=== PATIENT | female | born 2000 | race Caucasian/White ===

== ENCOUNTER → 2022-01-21 10:46 | Outpatient (CLI) | payer OTHER, MEDICAID, SELFPAY ==
--- NOTE | 2022-01-21 10:51 | DI.RAD.S_ITS ---
PROCEDURE: XR HUMERUS LT 2V INDICATIONS: Unable to palpate Nexplanon in left arm TECHNIQUE: 2 views of the humerus were acquired. COMPARISON: None. FINDINGS: Bones: No fractures or dislocations. No suspicious bony lesions. Soft tissues: No suspicious soft tissue calcifications. 4 cm linear implantable control noted in the subcutaneous tissues in the mid arm IMPRESSION: Mid arm subcutaneous control implant noted Approved by: Colton Long M.D. on 01/21/2022 at 15:56
== END ==
PROVIDERS: PCP Physician Assistant; Referring Provider Specialist; Visit Provider Specialist
DX: Z30.46 Encounter for surveillance of implantable subdermal contraceptive (principal)
CPT/HCPCS: 73060

== ENCOUNTER → 2022-02-21 13:51 | Outpatient (CLI) | payer OTHER, MEDICAID, SELFPAY ==
[2022-02-21 14:26] LABS: COVID19 -Nasal RAPID Negative (Negative)
== END ==
PROVIDERS: PCP Physician Assistant; Visit Provider Specialist
DX: Z20.822 Contact with and (suspected) exposure to COVID-19 (principal); Z01.812 Encounter for preprocedural laboratory examination
CPT/HCPCS: 87635; C9803

== ENCOUNTER 2022-02-22 11:51 | Day surgery (SDC) | payer OTHER, MEDICAID, SELFPAY ==
[2022-02-19 07:29] VITALS: BMI 29.1
[2022-02-22] VITALS (9 sets, daily range): BP systolic 96–130; BP diastolic 37–74; PULSE 85–99; RESP 13–18; TEMP 35.9–36.8; O2SAT 93–97; BMI 29.1
[2022-02-22] MEDS: LACTATED RINGERS 1,000 ML 100 ML IV (12:30)
[2022-02-22] MEDS: ACETAMINOPHEN 325 MG TABLET 975 MG PO (12:33)
--- NOTE | 2022-02-22 12:59 | PM.PREOP ---
Pre-operative Note COVID-19 COVID-19 status: Negative Result date/Date tested (Pos, Neg/Pending): 02/21/22 Criteria for continued procedure: Delay expected to result in less-positive ultimate med/surg outcome Interval Note History & Physical reviewed/Exam performed by Physician: Yes Changes to H&P: No
--- NOTE | 2022-02-22 13:00 | P.HPOB_ITS ---
History of Present Illness History of Present Illness Reason for admission: other (Nexplanon not retrievable in the office) Narrative: Rosie Dumont is a 21 year old female admitted for removal of Nexplanon with C arm location and replacement of Nexplanon [facility] [place] Medical History (Updated 02/22/22 @ 13:02 by Jeanne Aiken MD) Chiari malformation History of developmental delay History of impulsive behavior PTSD (post-traumatic stress disorder) Tremor of both hands Social History household members: family Smoking Status: Never smoker alcohol intake: never Meds Home Medications and Allergies Home Medications Medication Instructions Recorded Confirmed Type etonogestrel 68 mg subdermal 1 implant SUBDERMAL CONT each 12/02/18 02/19/22 History implant (Nexplanon) Allergies Allergy/AdvReac Type Severity Reaction Status Date / Time aspirin [ASPIRIN] Allergy Unknown Avoided Verified 02/22/22 11:28 due to strong family history of allergy Review of Systems Review of Systems Narrative: Patient denies any fevers. No pain. She is requesting replacement of Nexplanon that has . Exam Vital Signs (past 8 hours): - 02/22/22 12:10 Temperature 98.2 F Pulse Rate 89 Respiratory Rate 16 Blood Pressure 130/74 Pulse Oximetry 97 Oxygen Delivery Method Room Air Narrative Exam Narrative: HEENT exam within normal limits. Lungs are clear to auscultation percussion. Heart is regular rate and rhythm no S3-S4 murmurs. Abdomen is soft nontender. Extremities without edema and nontender. Nexplanon is in her left arm. Consent form reviewed with the patient and signed. Risk of reaction to medication or anesthesia, infection, bleeding, pain. Consent form signed and questions answered. Assessment & Plan Assessment and plan (1) Nexplanon in place: Problem details: Malpositioned Status: Acute (2) Encounter for removal and reinsertion of Nexplanon: Status: Acute (3) Preoperative exam for gynecologic surgery: Status: Acute Assessment & Plan narrative: Removal and replacement of Nexplanon in the patient's left arm. Time Spent With Patient Critical Care time: I spent a total of [] minutes of critical care time on this patient's care today; this time is exclusive of procedural time.
[2022-02-22] MEDS: CEFAZOLIN 2 GM/20 ML SYRINGE IV (14:10)
--- NOTE | 2022-02-22 14:24 | SUR.OPER ---
Supine on padded OR bed, head on pillow, right arm secured on padded arm board at <90 degrees abduction, left arm in surgical field on hand table. Legs uncrossed, pillow under knees, safety belt at thigh, gel pad under bilateral heels.
[2022-02-22] MEDS: BUPIVACAINE 0.25% (PF) 30 ML, EPINEPHrine 0.15 MG INJ (14:34)
--- NOTE | 2022-02-22 14:49 | PM.OP.1 ---
Operative Date/Time/Diagnoses Date of procedure: 02/22/22 Time of procedure: 14:49 Pre-op diagnosis: Malpositioned Nexplanon in left arm and wish for new Nexplanon placement Post-op diagnosis: same Procedure & Clinicians Procedure: Removal of left arm Nexplanon IUD with assist by C-arm x-ray. Placement Nexplanon in left arm. Same procedure as scheduled: Yes Indications: Patient with Nexplanon wishing new Nexplanon but was not able to be removed in the office. Surgeon: Jeanne Aiken Click Yes if Unassisted: Yes Anesthesia Type: General Operative Notes Findings: Nexplanon in left arm Closure Type: primary Specimen(s): none sent Estimated Blood Loss (mL): 5 Blood products transfused: none Procedure in detail: Patient was brought to the operating room where she underwent general anesthesia. The left arm was prepped and draped sterilely. 2 g of Ancef were in prior to beginning the case. A check system was reviewed with the staff in the room prior to beginning of the case. The C-arm x-ray was used to locate the Nexplanon. An incision was made through prior incision and the Nexplanon capsule was grasped and the Nexplanon removed. New Nexplanon was placed lower in the arm through the 1st incision and aiming toward the elbow rather than towards the axilla. The skin of the incision was closed with 4-0 Monocryl. 0.5% Marcaine with epinephrine was injected for postop pain control. Counts of instruments and sponges were correct. Patient went to recovery room in stable condition. Complications: none Post-operative Condition: stable Disposition: same day surgery Plan for aftercare: Home when awake and stable.
--- NOTE | 2022-02-22 14:57 | SUR.OPER ---
New nexplanon implant inserted by Dr. Aiken to left upper, inner arm upon removal of prior nexplanon. Lot # [id number], expiration: 03/26/2024.
== END 2022-02-22 15:32 | disposition home or self-care (01) ==
PROVIDERS: PCP Physician Assistant; Referring Provider Specialist; Visit Provider Specialist
PROC: (CPT 11981; principal; 2022-02-22 13:00)
DX: Z30.46 Encounter for surveillance of implantable subdermal contraceptive (principal)
CPT/HCPCS: 11981; 11982; 76000; 81025; J0171; J0690; J1100; J1885; J2250; J2704; J3010; J7307

== ENCOUNTER → 2024-08-23 14:42 | Outpatient (CLI) | payer OTHER, MEDICAID, SELFPAY ==
[2024-08-23 19:03] LABS: Urine N gonorrhoeae NOT DETECTED
[2024-08-23 19:21] LABS: Urine Chlamydia NOT DETECTED
== END ==
PROVIDERS: PCP Physician Assistant; Visit Provider Student in an Organized Health Care Education/Training Program
DX: Z11.3 Encounter for screening for infections with a predominantly sexual mode of transmission (principal)
CPT/HCPCS: 87491; 87591